=== PATIENT | male | born 1965 | race Caucasian/White ===

== ENCOUNTER 2019-01-04 05:51 | Inpatient (IN) | payer BC ==
[2019-01-01 13:05] VITALS: BMI 41.5
[2019-01-04] MEDS ORDERED: Bupivacaine HCl 0.5%/Epinephrine 1:200,000/PF 30 ml Vial ONE (06:11)
[2019-01-04] MEDS ORDERED: Thrombin 5000 UNITS/5 ML VIAL ONE (06:11)
[2019-01-04] MEDS ORDERED: Sodium Chloride 0.9% 20 ML ONE (06:11)
[2019-01-04 06:44] LABS: #Basophils 0.1 thou/uL (0.0-0.2); #Eosinphils 0.1 thou/uL (0.0-0.7); #Lymphocytes 1.8 thou/uL (1.20-3.40); #Monocytes 0.7 thou/uL (0.11-0.59); #Neutrophils 3.5 thou/uL (1.40-6.50); %Basophils 1.5 % (0.0-1.0); %Eosinophils 2.1 % (0.0-10.0); %Lymphocytes 28.7 % (21.0-51.0); %Monocytes 11.8 % (0.0-10.0); %Neutrophils 55.9 % (42.0-75.0); Hemoglobin 14.8 g/dL (14.0-18.0); Mean Corpuscular HGB CONC 33.3 g/dL (32.0-36.0); Mean Corpuscular Hemoglobin 30.3 pg (27.0-31.0); Mean Corpuscular Volume 91.2 fL (78.0-98.0); Mean Platelet Volume 6.9 fL (7.4-10.4); Platelet Count 284 thou/uL (130-400); RBC Distribution Width 11.9 % (11.5-14.5); Red Blood Cell (RBC) Count 4.88 mill/uL (4.70-6.10); White Blood Cell (WBC) Count 6.2 thou/uL (4.8-10.8)
[2019-01-04] MEDS ORDERED: Midazolam HCl 2 mg/2 ml Vial ONE (06:49)
[2019-01-04 06:51] LABS: Prothrombin Time 12.8 SEC (12.0-14.7)
[2019-01-04] MEDS ORDERED: Famotidine/PF 20 mg/2ml Vial ONE (06:51)
[2019-01-04] MEDS ORDERED: Fentanyl 100 MCG/2 ML VIAL ONE ×2 (06:56→11:15)
[2019-01-04] MEDS ORDERED: HYDROmorphone 2 MG/ML VIAL SLOW IVP PRN (08:51)
[2019-01-04] MEDS ORDERED: Promethazine HCl 25 MG/ML VIAL IM PRN ×2 (08:51→11:21)
[2019-01-04] MEDS ORDERED: Meperidine HCl/PF 25 MG/ML VIAL SLOW IVP PRN (08:51)
[2019-01-04] MEDS ORDERED: Promethazine HCl 25 MG/ML VIAL SLOW IVP PRN (08:51)
[2019-01-04] MEDS ORDERED: Mag-Al 1200 mg/1200 mg/30 ML UDCUP PO PRN (11:21)
[2019-01-04] MEDS ORDERED: Promethazine 25 MG TAB PO PRN (11:21)
[2019-01-04] MEDS ORDERED: diphenhydrAMINE 25 MG CAP PO PRN (11:21)
[2019-01-04] MEDS ORDERED: Morphine 4 MG/ML VIAL SLOW IVP PRN (11:21)
[2019-01-04] MEDS ORDERED: Acetaminophen 650 MG Suppository PR PRN (11:21)
[2019-01-04] MEDS ORDERED: diphenhydrAMINE 50 MG/ML VIAL IVP PRN (11:21)
[2019-01-04] MEDS ORDERED: Acetaminophen 325 MG TAB PO PRN (11:21)
[2019-01-04] MEDS ORDERED: Acetaminophen/Codeine 30-300mg Tablet PO PRN (11:21)
[2019-01-04] MEDS ORDERED: Tamsulosin HCl 0.4 MG CAP PO PRN (11:21)
[2019-01-04] MEDS ORDERED: Milk Of Magnesia 30 ML UDCUP PO PRN (11:21)
[2019-01-04] MEDS ORDERED: Ondansetron PF 4 MG/2 ML Vial IVP PRN (11:21)
[2019-01-04] MEDS ORDERED: Morphine 2 MG/ML SYRINGE SLOW IVP PRN (11:21)
[2019-01-04] MEDS: Sodium Chloride 0.9% 1,000 ML IV SCH (13:58)
[2019-01-04] MEDS: CEFAZOLIN 2 GM in Premix Bag 1 BAG IVPB SCH ×2 (14:00→21:02)
[2019-01-04] MEDS ORDERED: Ketorolac Tromethamine 30 MG/ML VIAL ONE (14:19)
[2019-01-04] MEDS ORDERED: Dexamethasone 20 MG/5 ML VIAL ONE (14:19)
[2019-01-04] MEDS ORDERED: PROPOFOL 200 MG/20 ML VIAL ONE (14:19)
[2019-01-04] MEDS ORDERED: Lidocaine 1% PF 5 ML VIAL ONE (14:19)
[2019-01-04] MEDS ORDERED: Rocuronium Bromide 10 MG/ML (10ML VIAL) ONE (14:19)
[2019-01-04] MEDS ORDERED: Ondansetron PF 4 MG/2 ML Vial ONE (14:19)
[2019-01-04] MEDS ORDERED: Glycopyrrolate 0.2 MG/ML 5 ML SYRINGE ONE (14:19)
[2019-01-04] MEDS ORDERED: ePHEDrine 50 MG/ML VIAL ONE (14:19)
--- NOTE | 2019-01-04 15:02 | OP ---
DATE OF PROCEDURE: 01/04/2019 SCALER PACKER: Evelyn Aguilar PA-C PREOPERATIVE INDICATION: Treat pain and prevent neurological deterioration. PREOPERATIVE DIAGNOSIS: Unstable spondylolisthesis at L4-L5 with bilateral L5 radiculopathies. POSTOPERATIVE DIAGNOSIS: Unstable spondylolisthesis at L4-L5 with bilateral L5 radiculopathies. OPERATIVE PROCEDURES: 1. Decompressive laminectomy, medial facetectomy, foraminotomy, L4-L5. 2. Transforaminal lumbar interbody arthrodesis, L4-L5. 3. Placement of intervertebral biomechanical device, L4-L5. 4. Pedicle screw and jeferson instrumentation, L4-L5. 5. Posterolateral arthrodesis, L4-L5. 6. Local morselized autograft and morselized allograft. PREOPERATIVE MEDICATIONS: Given Ancef 2 g IV. DRAIN NUMBER: One. DRAIN TYPE: 10-Frisian Edwardo. DESCRIPTION OF PROCEDURE: The patient was brought to the operating room. General endotracheal anesthesia was induced. The patient was positioned prone on the operating table with the chest and hips supported by the appropriate attachments of the Teto frame. A lateral fluoro radiograph was used to plan our incision. The lumbar skin was sterilely prepped and draped. We opened with a 10 blade knife. We controlled bleeding with bipolar and monopolar cautery. We used monopolar cautery to dissect through subcutaneous tissues to the thoracodorsal fascia. We incised the fascia in the midline. We reflected the paraspinal muscles off the spinous process and lamina of L3, L4, and L5. A self-retaining retractor was placed. A lateral fluoro radiograph confirmed the levels upon which we were operating. We then dissected over the facet joints at L3-L4 and L4-L5 to identify the transverse processes of L4 and L5 bilaterally. We irrigated with bacitracin irrigation. We placed the self-retaining retractor. Using Adson rongeur, we removed the spinous process of L4 and the superior portion of the spinous process of L5. With Kerrison rongeurs, we performed the laminectomy down the midline. We widened our laminectomy defect by performing medial facetectomy at L4-L5. We made sure the lateral recesses were decompressed at L3-L4 and at L4-L5 to ensure L4 and L5 nerve roots were no longer impinged. We irrigated with bacitracin irrigation. We then performed the complete facetectomy on the right side at L4-L5. Over the facet joint in the inferior articular process of L4 gone, we did access the intervertebral space through the foramen. We incised the disk and removed disk contents using curettes and rongeurs. We prepared the endplates for grafting using a rectangular-shaped bone rasps. We used curettes as well. We measured the height of the interspace to 11 mm and brought in an 11-mm PEEK intervertebral graft into the field. The laminectomy bone and facetectomy bone were carefully cleaned of soft tissue attachments, morcellized and added into demineralized bone matrix to form our fusion substrate and the substrate was packed into the PEEK intervertebral graft. The graft was advanced in the interspace under radiographic guidance to the appropriate depth. We changed our attention to pedicle screw instrumentation. Using bony anatomic landmarks, palpation of the medial portion of the pedicles, and a lateral fluoro radiograph as our guide, we chose entry points for pedicle screws at L4 and L5 bilaterally. We drilled out our entry points and then used a bone awl to advance through the pedicles into the vertebral bodies. We used a threaded tap to tap each trajectory and we probed the trajectories. They were completely encased in bone. We then placed 6.5 mm in diameter screws through the pedicles at L4 and L5 bilaterally. We irrigated with bacitracin irrigation. We generated a 360-degree image set with our isocentric C-arm, confirming adequate positioning of our pedicle screw instrumentation. We then brought the rods down into the screw heads and we tightened caps over the rods. Before final tightening, we applied gentle compression across the interspace to keep our interbody graft in place. Using a torque/counter-torque mechanism, we ensured adequate tightness of the caps. We irrigated with bacitracin irrigation one last time in the lateral recesses and down the center of the canal. We then decorticated the transverse processes of L4 and L5 bilaterally and over the decorticated bone, we left demineralized bone matrix and morselized autograft as our posterior lateral fusion substrate. We obtained hemostasis with bipolar cautery. We probed the L4 nerve roots and the L5 nerve roots with a Chaudhry ball probe and ensured that they could traverse their respective interspaces and leave through their foramina without impingement. We infused local anesthetic in the paraspinal muscles. We treated the wound with vancomycin powder. We closed the wound in anatomical layers over drain and we applied a sterile dressing. This was a clean case, no contamination. Job ID: [id number]
[2019-01-04] MEDS: tiZANidine HCl 4 MG TAB PO PRN (17:26)
[2019-01-04] MEDS: Acetaminophen/Codeine 30-300mg Tablet PO PRN ×2 (17:26→20:57)
[2019-01-04] MEDS ORDERED: Valsartan 80 MG TAB PO SCH (21:00)
[2019-01-04] MEDS ORDERED: Atenolol 25 MG TAB PO SCH (21:00)
[2019-01-05] MEDS: Sodium Chloride 0.9% 1,000 ML IV SCH ×2 (03:31→13:29)
[2019-01-05] MEDS: Acetaminophen/Codeine 30-300mg Tablet PO PRN ×3 (05:04→18:21)
[2019-01-05] MEDS: tiZANidine HCl 4 MG TAB PO PRN (05:04)
[2019-01-05] MEDS: CEFAZOLIN 2 GM in Premix Bag 1 BAG IVPB SCH ×2 (05:05→13:27)
--- NOTE | 2019-01-05 07:41 | PRG ---
DATE OF SERVICE: 01/05/2019 I saw Sai Henderson in his hospital room this morning. He is one day out from decompression and fusion of lumbar spine at L4-L5 for unstable spondylolisthesis and lateral recess stenosis. Already Mr. Henderson has noticed decrease in the numbness in his legs and no radiating pain when he stood up to walk to the bathroom. He has been fitted with a custom brace. Overnight, vital signs have been stable. He has good neurological function in the lower extremities. There is no area of new numbness and there is no weakness. Once Mr. Henderson's drain tapers to less than 40 mL in 8 hours or less than 30 mL in 6 hours, then the drain can be removed. When he is safe for his activities of daily living, he can be discharged. If that is this afternoon and he is ready for it. Otherwise, I will anticipate a discharge tomorrow. Job ID: [id number]
[2019-01-05 07:59] VITALS: TEMP 98.1
[2019-01-05 11:31] VITALS: BP 129/72
--- NOTE | 2019-01-05 13:41 | HP ---
HISTORY OF PRESENT ILLNESS: Mr. Henderson is a 53-year-old man, who reports to our office for evaluation of low back and right greater than left leg pain. He states that he has had severe arthritis, which he sees a [employer]cher utility for since 2017. He has started treatment for his knees, hips, and back, this began to flare up. He describes pain along the right greater than the left electric shocks going down the back of his legs. He has some numbness in the ankle and foot with burning on the bottom of his feet. Any time he sits for any long time, things get worse. His recliner is the best position and most comfortable for him. He has seen a chiropractor in the past without any benefit. He has had injections that would last days to a few weeks and no physical therapy at this time. The patient states that things are quite painful when he rolls over in bed. REVIEW OF SYSTEMS: A 10-point review of systems is completed and negative other than stated in the above HPI. PAST MEDICAL HISTORY: Arthritis, anxiety, chronic pain, depression, and hypertension. PAST SURGICAL HISTORY: Left knee replacement, hip scope, right meniscus. FAMILY HISTORY: Father is , diagnosed with hypertension and cancer. Mother is alive. SOCIAL HISTORY: The patient is a smoker. He is sexually active. MEDICATIONS: Taking, 1. . 2. Inflectra. 3. Atenolol. 4. Valsartan. ALLERGIES: CLINDAMYCIN, ERYTHROMYCIN, AND INDOMETHACIN. PHYSICAL EXAMINATION: CONSTITUTIONAL: Well appearing, well nourished, alert. RESPIRATORY: Normal work of breathing on room air. NEUROLOGIC: Awake, alert, oriented. Speech, spontaneous and fluent. Cranial nerves grossly intact. Lower extremities 5/5 bilateral strength, hip flexion, dorsiflexion, plantarflexion, EHL. Positive radiculopathy. Positive single leg raise bilaterally. Hip rotation painful. Tender to palpate thoracic and lumbar spine. Deep tendon reflexes 1+ bilaterally. Negative Babinski. No clonus. Sensory exam, decreased sensation on top of right foot. Gait and station, sit to stand. Normal gait. IMAGING: Flexion and extension x-rays, 3 mm motion at L4-5. Myelogram, poor injection subdural rather than intra-arachnoid space. Nonetheless, L4-5 stenosis, foraminal disease, T-spine looks ankylosed, but no foraminal disease. 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 The patient has failed PT, injections, and medications. L4-5 laminectomy and TLIF has been offered. INFORMED CONSENT: We discussed the indications, risks, benefits, alternatives, expected results from surgery. Risks discussed included, but were not limited to, bleeding, infection, CSF leak, nerve damage, weakness, incontinence, cauda equina injury, arachnoiditis, paralysis, ventilator dependence, wheelchair dependence, loss of vision, hardware misplacement, cardiopulmonary complications of anesthesia, or . Long-term complications discussed included, but were not limited to degradation of surrounding disks and need for further surgery. The patient states he understands the risks. Job ID: [id number]
--- NOTE | 2019-01-08 09:49 | EKG ---
Test Reason : PREOP Blood Pressure : / mmHG Vent. Rate : 058 BPM Atrial Rate : 058 BPM P-R Int : 168 ms QRS Dur : 102 ms QT Int : 396 ms P-R-T Axes : 050 005 014 degrees QTc Int : 388 ms Sinus bradycardia Otherwise normal ECG No previous ECGs available Confirmed by JUNI JOEL, REED ([id number] on 01/08/2019 9:48:46 AM Referred By: YAS Confirmed By:REED ALFREDO MD
== END 2019-01-05 18:27 | disposition home or self-care (01) | DRG 454 ==
LOC: SURG A 05:51
PROVIDERS: ADMIT Neurological Surgery; ATTEND Neurological Surgery
PROC: 0SG00AJ Fusion of Lumbar Vertebral Joint with Interbody Fusion Device, Posterior Approach, Anterior Column, Open Approach (ICD-10-PCS; principal; 2019-01-04)
PROC: 0SG0071 Fusion of Lumbar Vertebral Joint with Autologous Tissue Substitute, Posterior Approach, Posterior Column, Open Approach (ICD-10-PCS; 2019-01-04)
PROC: 0SB20ZZ Excision of Lumbar Vertebral Disc, Open Approach (ICD-10-PCS; 2019-01-04)
PROC: 01NB0ZZ Release Lumbar Nerve, Open Approach (ICD-10-PCS; 2019-01-04)
DX: M48.061 Spinal stenosis, lumbar region without neurogenic claudication (principal); Z68.41 Body mass index [BMI] 40.0-44.9, adult; M43.16 Spondylolisthesis, lumbar region; I10 Essential (primary) hypertension; F32.9 Major depressive disorder, single episode, unspecified; G89.29 Other chronic pain; Z96.652 Presence of left artificial knee joint; E66.9 Obesity, unspecified; M54.16 Radiculopathy, lumbar region; Z79.899 Other long term (current) drug therapy; Z88.1 Allergy status to other antibiotic agents; Z88.8 Allergy status to other drugs, medicaments and biological substances; Z91.040 Latex allergy status; Z87.891 Personal history of nicotine dependence
CPT/HCPCS: 36415; 76000; 85025; 85610; 85730; 93005; 93010; C1713; C1768; J0131; J0670; J0690; J1200; J2250; J2270; J3010; J3370; J3490; L0639; S0028

== ENCOUNTER 2019-03-01 12:16 | Outpatient (CLI) | payer BC ==
--- NOTE | 2019-03-01 12:36 | RAD ---
TWO VIEWS LUMBAR SPINE: INDICATION: Low back pain; history of surgery. FINDINGS: There are bilateral pedicle screws at L4 and L5. There are interconnecting rods. There are laminectom y changes at L4-5. There is an intervertebral disc cage seen at L4-5. There is slight retrolisthesis of L3 on L4 which is likely degenerative. No acute fracture or subluxation is evident. IMPRESSION: Postoperative lumbar spine. Transcribed Date/Time: 03/01/2019 1:02 PM
== END 2019-03-01 12:17 | disposition home or self-care (01) ==
LOC: BICRAD 12:16
PROVIDERS: ATTEND Neurological Surgery
DX: M54.5 Low back pain (principal); Z98.890 Other specified postprocedural states
CPT/HCPCS: 72100